=== PATIENT | female | born 1990 | race Two or more races ===

== ENCOUNTER 2020-12-14 14:02 | Emergency (ER) | payer OTHER ==
[~2020-12-14] VITALS: Ht 170.2 cm; Wt 89.4 kg
[2020-12-14] MEDS ORDERED: OBTREX DHA COM1 EACH (14:09)
== END 2020-12-14 16:37 | disposition home or self-care (01) ==
LOC: ER 14:02
DX: N93.8 Other specified abnormal uterine and vaginal bleeding (principal); O20.8 Other hemorrhage in early pregnancy; Z3A.01 Less than 8 weeks gestation of pregnancy